=== PATIENT | male | born 1970 | race Caucasian/White ===

== ENCOUNTER 2024-11-16 11:25 | Day surgery (SDC) | payer OTHER, SELFPAY ==
[2024-11-13 12:37] VITALS: BMI 31.4
[2024-11-16 12:59] VITALS: BP 150/89; PULSE 63; RESP 16; TEMP 36.1; O2SAT 99
[2024-11-16] MEDS: LACTATED RINGERS 1000ML 1,000 ML 50 ML IV (12:59)
[2024-11-16 13:15] LABS: POC Glucose,Bedside 120 (70-110)
--- NOTE | 2024-11-16 14:07 | EXP.ANES.CKL ---
[facility] Disclaimer: The information contained in this section may have been updated after the patient was seen, as this information can be updated by other users. Medical History Neuropathy Hyperlipemia Depression Hypertension Diabetes mellitus, type 2 Surgical History History of shoulder surgery History of colonoscopy Family History Other Family history of cancer Social History Smoking Status: Never smoker alcohol intake: current substance use type: denies use current occupational status: employed Travel in the last 8 weeks: None [facility] Anesthesia Checklist Patient Identification Patient Identification: Arm Band Structural Data Admitted From: Home Planned Operative Procedure/s: EGD/Colonoscopy Consent for Planned Operative Procedure(s) Verified: Yes Verified Documents: Surgical Consent and History and Physical NPO Status Verified Time NPO: 09:00 (finished prep) Additional verifications Anesthesia Reactions: No Airway Assessment Mallampati Score:: Class II C-Spine Mobility Assessed: Yes TMJ Mobility Assessed: Yes Dentition: Good Dentition Neurological Assessment Level of Consciousness: Awake, Alert and Appropriate Anesthesia Plan Anesthesia Risk discussed: Yes Anesthesia Plan: Verified ASA Class: II Anesthesia Type: MAC
--- NOTE | 2024-11-16 14:36 | EXP.HP ---
History of Present Illness *Admission Date: 11/16/24 *Reason for visit:: Positive cancer genetic syndrome *History of present illness: Mr. Cope is a 54-year-old gentleman who is here for screening/surveillance endoscopy and colonoscopy. The patient did have genetic testing and was found to have a positive genetic test associated with: Another cancers and it was recommended by a genetic counselor to have screening endoscopy and colonoscopy. The patient's paternal grandmother and 2 paternal aunts had colon cancer. He had a colonoscopy 3 years ago in [place] and had 2 or 3 benign polyps removed. The examination is deemed medically necessary for screening EGD and colonoscopy. The patient has been seen, interviewed and examined prior to the procedure by both myself and the anesthesia provider. [facility] Disclaimer: The information contained in this section may have been updated after the patient was seen, as this information can be updated by other users. Medical History (Updated 11/16/24 @ 14:38 by Earnest Del Rosario II, MD) Neuropathy Hyperlipemia Depression Hypertension Diabetes mellitus, type 2 Surgical History History of shoulder surgery History of colonoscopy Family History Other Family history of cancer Social History (Updated 11/16/24 @ 14:08 by Carlos Johnson CRNA) Smoking Status: Never smoker alcohol intake: current substance use type: denies use current occupational status: employed Travel in the last 8 weeks: None Have you lived/traveled outside [place] in past 30 days?: No Contact w/someone who lives/traveled outside US past 30 days?: No Exposure to someone with infectious disease in past 14 days?: No Do you have a fever (greater than 100.4 F or 38 C)?: No Have you tested positive for COVID-19: No Exposed to someone with COVID-19 in past 14 days?: No Do you have a sore throat?: No Do you have a cough?: No Do you have any weakness?: No Are you experiencing any nausea/vomitting?: No Do you have any diarrhea?: No Are you experiencing any unusual bleeding?: No Do you have any muscle aches/pain?: No Do you have any abdominal pain?: No Are you experiencing loss of taste or smell?: No Review of Systems Review of Systems Review of systems (narrative): Negative *Cardiovascular Comments: Negative *Gastrointestinal Comments: Negative *Genitourinary Comments: Negative *Musculoskeletal Comments: Negative *Neurologic Comments: Negative Meds Home Medications and Allergies Home Medications ?Medication ?Instructions ?Recorded ?Confirmed ?Type amlodipine 5 mg tablet 5 mg PO DAILY 11/13/24 11/16/24 History atorvastatin 10 mg tablet 10 mg PO HS 11/13/24 11/16/24 History gabapentin 300 mg tablet 300 mg PO BID 11/13/24 11/16/24 History insulin glargine 100 unit/mL (3 20 unit SQ DAILY 11/13/24 11/16/24 History mL) subcutaneous pen (Lantus Solostar U-100 Insulin) lisinopril 20 mg tablet 20 mg PO DAILY 11/13/24 11/16/24 History metformin 1,000 mg tablet 1,000 mg PO BID 11/13/24 11/16/24 History paroxetine HCl 10 mg tablet 10 mg PO DAILY 11/13/24 11/16/24 History semaglutide 1 mg/dose (4 mg/3 mL) 1 mg SQ WEEKLY 11/13/24 11/16/24 History subcutaneous pen injector (Ozempic) New Prescriptions to Start Prescriptions: Allergies Allergy/AdvReac Type Severity Reaction Status Date / Time No Known Allergies Allergy Verified 11/16/24 12:57 Exam Data for Last 24 hours Vital signs and Labs for Last 24 Hours: Temp Pulse Resp BP Pulse Ox O2 Del Method 97.0 F L 63 16 150/89 H 99 Room Air 11/16/24 12:59 11/16/24 12:59 11/16/24 12:59 11/16/24 12:59 11/16/24 12:59 11/16/24 12:59 Laboratory Results - last 24 hr 11/16/24 13:07: POC Glucose 120 H I & O for Last 24 hours: Intake & Output 11/13/24 11/14/24 11/15/24 11/16/24 23:59 23:59 23:59 23:59 Weight 245 lb *Routine HEENT Exam Head: Present normocephalic Eye: Present EOMI and PERRL ENT: Present mucous membranes moist *Routine Neck Exam Neck: Present supple *Routine Respiratory Exam Respiratory: Present CTA bilaterally *Routine Cardiovascular Exam Cardiovascular: Present RRR *Routine Abdominal Exam Abdominal: Present soft and normoactive bowel sounds; Absent tenderness *Routine Rectal Exam Rectal:: deferred *Routine Genitalia Exam Genitalia:: deferred *Routine Extremities Exam Extremities: Absent cyanosis, clubbing or edema *Routine Skin Exam Skin: Present warm; Absent rash *Routine Neurological Exam Neurological: Present alert and oriented X3 Assessment and Plan *Assessment and plan (1) 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 Family history of colon cancer and genetic carrier of heritable cancer is the preprocedural diagnosis. The patient will be anesthetized/sedated using MAC sedation. The patient has been seen and examined. Cardiac and lung assessment prior to the examination is stable. Proceed with planned screening EGD and screening/surveillance colonoscopy.
[2024-11-16 14:37] VITALS: O2SAT 99
--- NOTE | 2024-11-16 14:38 | P.PCN_ITS ---
[facility] Procedure Note Date: 11/16/24 Time: 14:47 Procedure Note:: Upper Endoscopy Procedure Report: Esophagogastroduodenoscopy with cold biopsies Endoscopost: Earnest Del Rosario II, MD Referring Physician: RACHEL Mora Date of Procedure: November 16, 2024 Equipment: Olympus GIF 190 standard upper endoscope Sedation: MAC sedation Indications: Mr. Cope is a 54-year-old gentleman who is here for screening upper endoscopy and screening/surveillance colonoscopy secondary to having gen etic testing showing that he is a genetic carrier for a heritable cancer. It was recommended by the genetic counselor or PCP to have this screening. The patient does state that his paternal grandmother and 2 paternal aunts had colon cancer. His paternal aunts were age 50 and age 60 (younger in age). The patient did have a colonoscopy 3 years ago with ms in [place] and had 2 or 3 benign colon polyps removed. The patient reports no epigastric abdominal pain, heartburn, reflux or dysphagia. He reports no bloating, gassiness, change in his bowel habits, rectal bleeding or weight loss. Procedure: Prior to the procedure, a history and physical exam was performed, and patient's medications and allergies were reviewed. The risks, benefits and alternatives of the sedation and procedure were discussed with the patient. All questions were answered and informed consent was obtained. The patient was brought to the procedure room. Patient identification and proposed procedure were verified by the physician and the nurse. The patient was placed in a left lateral decubitus position and the scope was passed under direct vision. Throughout the procedure, the patient's blood pressure, pulse, and oxygen saturations were monitored continuously. The upper GI endoscopy was accomplished without difficulty. The patient tolerated the procedure well. Findings: The scope was passed directly into the upper esophagus and advanced to the third portion of the duodenum. The post bulbar duodenum, ampulla and duodenal bulb were normal with normal mucosa and conniventes. The scope was with drawn through a normal duodenal bulb and pylorus into the stomach. There was moderate chronic gastritis with mosaic/reticular pattern to the body and fundus (proximal chronic gastritis/type A gastritis). Cold biopsies were obtained from the lesser curvature/body of the stomach to rule out H. pylori. Upon retroflexion, there was a very small sliding 1 to 2 cm hiatal hernia. The scope was then withdrawn into the esophagus. There were 2 short tongues (less than a centimeter) of salmon-colored mucosa and biopsies were obtained to rule out intestinal metaplasia. There was no evidence of reflux esophagitis. The remainder of the esophageal mucosa was normal. Impression: 1. Very small sliding hiatal hernia 2. Moderate chronic gastritis (proximal type A gastritis?rule out H. pylori) Plan: I will follow-up the biopsies and proceed with surveillance/screening colonoscopy.
--- NOTE | 2024-11-16 14:47 | P.PCN_ITS ---
[facility] Procedure Note Date: 11/16/24 Time: 15:02 Procedure Note:: Colonoscopy Procedure Report: Colonoscopy with cold snare polypectomy Endoscopist: Earnest Del Rosario II, MD Referring physician: RACHEL Mora Date of Procedure: November 16, 2024 Equipment: Olympus 190 variable stiffness pediatric colonoscope Sedation: MAC sedation Indication: Mr. Cope is a 54-year-old gentleman who is here for screening upper endoscopy and screening/surveillance colonoscopy secondary to having g enetic testing showing that he is a genetic carrier for a heritable cancer. It was recommended by the genetic counselor or PCP to have this screening. The patient does state that his paternal grandmother and 2 paternal aunts had colon cancer. His paternal aunts were age 50 and age 60 (younger in age). The patient did have a colonoscopy 3 years ago with [facility] in [place] and had 2 or 3 benign colon polyps removed. The patient reports no epigastric abdominal pain, heartburn, reflux or dysphagia. He reports no bloating, gassiness, change in his bowel habits, rectal bleeding or weight loss. Procedure: Prior to the procedure, a history and physical exam was performed, and patient's medications and allergies were reviewed. The risks, benefits and alternatives of the sedation and procedure were discussed with the patient. All questions were answered and informed consent was obtained. The patient was brought to the procedure room. Patient identification and proposed procedure were verified by the physician and the nurse. The patient was placed in a left lateral decubitus position and the scope was passed under direct vision. Throughout the procedure, the patient's blood pressure, pulse, and oxygen saturations were monitored continuously. The colonoscopy was accomplished without difficulty. The patient tolerated the procedure well. Findings: On digital rectal examination there was normal rectal tone. There were no external hemorrhoids. The colonoscope was introduced through the anal canal to the rectum and advanced to the cecum. The ileocecal valve and appendiceal wood fice were identified. The scope was advanced a short distance into the ileum which appeared grossly normal. The scope was then withdrawn into the colon. There were 2 colon polyps (ascending x 1 (9 mm) and descending x 1 (4 mm)). These were both removed via cold snare polypectomy. The remaining cecum, ascending, transverse, descending, sigmoid and rectum were grossly normal. There were no other mucosal abnormalities identified. Upon retroflexion within the rectum there were grade 1-2 internal hemorrhoids. The preparation was excellent throughout with [place] Preparation Score of 9. The cecal time was 12 minutes. Impression: 1. Colonic polyps x 2 (4 and 9 mm) 2. Grade 1-2 internal hemorrhoids Plan: I will follow-up the polyp histology and recommend repeat surveillance colonoscopy again in 3 years based upon heritable cancer genetic carrier and I will try to get results of this genetic testing for documentation.
[2024-11-16 15:05] VITALS: BP 110/64; PULSE 62; RESP 16; TEMP 36.3; O2SAT 99
[2024-11-16 15:15] VITALS: BP 123/70; PULSE 68; RESP 17; O2SAT 97
[2024-11-16 15:25] VITALS: BP 131/91; PULSE 60; RESP 17; O2SAT 100
[2024-11-16 15:35] VITALS: BP 125/78; PULSE 58; RESP 17; O2SAT 100
== END 2024-11-16 15:45 | disposition home or self-care (01) ==
PROVIDERS: PCP Nurse Practitioner Family; Visit Provider Internal Medicine Gastroenterology
PROC: 0DJ08ZZ Inspection of Upper Intestinal Tract, Via Natural or Artificial Opening Endoscopic (ICD-10-PCS; CPT 45378; principal; 2024-11-16 13:00)
DX: Z12.11 Encounter for screening for malignant neoplasm of colon (principal); Z15.09 Genetic susceptibility to other malignant neoplasm; Z80.0 Family history of malignant neoplasm of digestive organs; Z86.0100 Personal history of colon polyps, unspecified; K44.9 Diaphragmatic hernia without obstruction or gangrene; K29.70 Gastritis, unspecified, without bleeding; D12.2 Benign neoplasm of ascending colon; D12.4 Benign neoplasm of descending colon; K64.8 Other hemorrhoids
CPT/HCPCS: 43239; 45385; 82962; J7120